=== PATIENT | male | born 1975 | race African-American/Black ===

== ENCOUNTER 2023-05-10 18:00 | Emergency (ER) | payer MEDICARE, OTHER ==
[~2023-05-10] VITALS: Ht 180.3 cm; Wt 113.4 kg
[2023-05-10] MEDS ORDERED: CIPR2.5D14 RIGHT EAR (18:39)
[2023-05-10] MEDS ORDERED: CIPR2.5D14 RIGHTEYE (18:43)
== END 2023-05-10 18:46 | disposition home or self-care (01) ==
LOC: ER 18:13
DX: H10.9 Unspecified conjunctivitis (principal); E11.9 Type 2 diabetes mellitus without complications; F32.A Depression, unspecified; F17.200 Nicotine dependence, unspecified, uncomplicated; Z79.899 Other long term (current) drug therapy
CPT/HCPCS: A4606; A4663